=== PATIENT | male | born 1990 | race Caucasian/White ===

== ENCOUNTER 2021-03-07 12:27 | Inpatient (IN) | payer OTHER ==
[2021-03-07] MEDS ORDERED: ACETAMINOPHEN 325 MG TABLET (FP) PO PRN ×2 (12:57)
[2021-03-07] MEDS ORDERED: MAGNESIUM CITRATE 300 ML BOTTLE PO PRN (12:57)
[2021-03-07] MEDS ORDERED: IBUPROFEN 400 MG TABLET (FP) PO PRN (12:57)
[2021-03-07] MEDS ORDERED: ONDANSETRON *ODT* 4 MG TABLET SL PRN (12:57)
[2021-03-07] MEDS ORDERED: MAGNESIUM HYDROX 2400MG/30ML ORAL SUSPENSION 30 ML CUP PO PRN (12:57)
[2021-03-07] MEDS ORDERED: BISMUTH SUBSALICYLATE 262 MG/15 ML BTL PO PRN (12:57)
[2021-03-07] MEDS ORDERED: MENTHOL/PHENOL 1 EACH UD MM PRN (12:57)
[2021-03-07] MEDS ORDERED: diazePAM 5 MG TABLET ONE (13:45)
[2021-03-07] MEDS ORDERED: hydrOXYzine PAMOATE 25 MG CAPSULE (FP) PO ONE (13:45)
[2021-03-07] MEDS: hydrOXYzine PAMOATE 25 MG CAPSULE (FP) PO SCH ×3 (13:48→21:42)
[2021-03-07] MEDS: diazePAM 5 MG TABLET PO PRN (13:48)
[2021-03-07 14:01] VITALS: BMI 36.5
[2021-03-07 14:38] LABS: HEMATOCRIT 42.4 % (35.4-49); HEMOGLOBIN 14.9 GM/dL (11.7-16.9); MCH 33.2 pg (25.7-33.7); MCHC 35.1 g/dl (32.0-35.9); MEAN CELL VOLUME 94.4 fl (80-96); PLATELET COUNT 158 10^3/uL (134-434); RBC 4.49 M/mm3 (4.00-5.60); RDW 13.1 % (11.9-15.9); WHITE BLOOD COUNT 5.7 K/mm3 (4.0-10.0)
[2021-03-07 14:47] LABS: BLOOD UREA NITROGEN 9.4 mg/dL (7-18)
[2021-03-07 14:48] LABS: ALBUMIN 4.4 g/dl (3.4-5.0)
[2021-03-07 14:50] LABS: CREATININE 1.2 mg/dL (0.55-1.3)
[2021-03-07 14:52] LABS: BILIRUBIN,TOTAL 3.8 mg/dL (0.2-1); TOT PROT 8.9 g/dl (6.4-8.2)
[2021-03-07] MEDS: PRENATAL VITAMINS W/ FOLIC ACID TABLET (FP) PO SCH (15:01)
[2021-03-07] MEDS ORDERED: MINERAL OIL/PET HY-PHL TOPICAL OINTMENT 454 GM JAR TP PRN (16:33)
[2021-03-07] MEDS: diazePAM 5 MG TABLET PO SCH (18:01)
[2021-03-07] MEDS: MAG HYDROX/AL HYDROX/SIMETH 30 ML UNIT-DOSE CUP PO PRN (18:06)
[2021-03-07] MEDS: NICOTINE 10 MG CARTRIDGE (INHALER) IH PRN (19:59)
[2021-03-07] MEDS: THIAMINE HCL 100 MG TABLET (FP) PO SCH (21:42)
[2021-03-07] MEDS: MELATONIN 5 MG TABLETS PO SCH (21:42)
[2021-03-07] MEDS: OXYMETAZOLINE 0.05% NASAL SOLUTION 15 ML BOTTLE NS SCH (23:30)
[2021-03-08] MEDS: NICOTINE 10 MG CARTRIDGE (INHALER) IH PRN (00:01)
[2021-03-08] MEDS: diazePAM 5 MG TABLET PO SCH ×5 (00:16→22:25)
[2021-03-08] MEDS: METHOCARBAMOL 500 MG TABLET PO PRN ×2 (01:14→10:42)
[2021-03-08] MEDS: hydrOXYzine PAMOATE 25 MG CAPSULE (FP) PO SCH ×5 (05:49→22:25)
[2021-03-08] MEDS: diazePAM 5 MG TABLET PO PRN (07:43)
[2021-03-08] MEDS: PRENATAL VITAMINS W/ FOLIC ACID TABLET (FP) PO SCH (10:41)
[2021-03-08] MEDS: PANTOPRAZOLE 20 MG TABLET PO SCH (10:42)
[2021-03-08] MEDS: OXYMETAZOLINE 0.05% NASAL SOLUTION 15 ML BOTTLE NS SCH ×2 (10:43→22:26)
[2021-03-08] MEDS: NICOTINE 14 MG/24 HOURS TOPICAL PATCH TD SCH (10:43)
[2021-03-08] MEDS ORDERED: POTASSIUM CHLORIDE TABS 20 MEQ TABLET.ER (FP) PO ONE ×2 (13:03→18:00)
[2021-03-08] MEDS: amLODIPine BESYLATE 5 MG TABLET (FP) PO SCH (13:31)
[2021-03-08] MEDS ORDERED: cloNIDine HCL 0.1 MG TABLET PO ONE (17:27)
[2021-03-08] MEDS: THIAMINE HCL 100 MG TABLET (FP) PO SCH (22:25)
[2021-03-08] MEDS: MELATONIN 5 MG TABLETS PO SCH (22:26)
[2021-03-09] MEDS: diazePAM 5 MG TABLET PO SCH ×3 (05:41→22:23)
[2021-03-09] MEDS: hydrOXYzine PAMOATE 25 MG CAPSULE (FP) PO SCH ×5 (05:41→22:21)
[2021-03-09] MEDS: OXYMETAZOLINE 0.05% NASAL SOLUTION 15 ML BOTTLE NS SCH ×2 (10:29→22:23)
[2021-03-09] MEDS: amLODIPine BESYLATE 5 MG TABLET (FP) PO SCH (10:30)
[2021-03-09] MEDS: PANTOPRAZOLE 20 MG TABLET PO SCH (10:30)
[2021-03-09] MEDS: METHOCARBAMOL 500 MG TABLET PO PRN (10:30)
[2021-03-09] MEDS: PRENATAL VITAMINS W/ FOLIC ACID TABLET (FP) PO SCH (10:30)
[2021-03-09] MEDS: diazePAM 5 MG TABLET PO PRN ×2 (10:31→22:22)
[2021-03-09] MEDS: NICOTINE 14 MG/24 HOURS TOPICAL PATCH TD SCH (10:33)
[2021-03-09] MEDS ORDERED: amLODIPine BESYLATE 10 MG TABLET (FP) PO SCH (12:00)
[2021-03-09] MEDS ORDERED: POTASSIUM CHLORIDE ORAL LIQUID 20 MEQ/15 ML PO ONE ×2 (12:30→16:30)
[2021-03-09] MEDS: THIAMINE HCL 100 MG TABLET (FP) PO SCH (22:21)
[2021-03-09] MEDS: MELATONIN 5 MG TABLETS PO SCH (22:23)
[2021-03-10] MEDS: hydrOXYzine PAMOATE 25 MG CAPSULE (FP) PO SCH ×5 (05:38→22:20)
[2021-03-10] MEDS: diazePAM 5 MG TABLET PO SCH ×2 (05:38→17:44)
[2021-03-10] MEDS: PRENATAL VITAMINS W/ FOLIC ACID TABLET (FP) PO SCH (10:36)
[2021-03-10] MEDS: amLODIPine BESYLATE 10 MG TABLET (FP) PO SCH (10:37)
[2021-03-10] MEDS: PANTOPRAZOLE 20 MG TABLET PO SCH (10:37)
[2021-03-10] MEDS: diazePAM 5 MG TABLET PO PRN (10:38)
[2021-03-10] MEDS: OXYMETAZOLINE 0.05% NASAL SOLUTION 15 ML BOTTLE NS SCH ×2 (11:16→22:21)
[2021-03-10] MEDS: NICOTINE 14 MG/24 HOURS TOPICAL PATCH TD SCH (11:17)
[2021-03-10] MEDS: METOPROLOL TARTRATE 25 MG TABLET (FP) PO SCH ×2 (13:23→22:20)
[2021-03-10 13:40] LABS: CALCIUM 9.8 mg/dL (8.5-10.1)
[2021-03-10 13:41] LABS: BLOOD UREA NITROGEN 14.7 mg/dL (7-18)
[2021-03-10 13:44] LABS: CREATININE 1.3 mg/dL (0.55-1.3)
[2021-03-10 13:46] LABS: BILIRUBIN,TOTAL 5.2 mg/dL (0.2-1); TOT PROT 7.6 g/dl (6.4-8.2)
[2021-03-10 13:53] LABS: ALBUMIN 3.5 g/dl (3.4-5.0)
[2021-03-10] MEDS: MAG HYDROX/AL HYDROX/SIMETH 30 ML UNIT-DOSE CUP PO PRN (18:46)
[2021-03-10] MEDS: THIAMINE HCL 100 MG TABLET (FP) PO SCH (22:20)
[2021-03-10] MEDS: MELATONIN 5 MG TABLETS PO SCH (22:21)
[2021-03-11] MEDS: hydrOXYzine PAMOATE 25 MG CAPSULE (FP) PO SCH ×2 (05:25→09:02)
[2021-03-11] MEDS ORDERED: diazePAM 5 MG TABLET PO ONE (06:00)
[2021-03-11] MEDS: PANTOPRAZOLE 20 MG TABLET PO SCH (09:01)
[2021-03-11] MEDS: amLODIPine BESYLATE 10 MG TABLET (FP) PO SCH (09:01)
[2021-03-11] MEDS: METOPROLOL TARTRATE 25 MG TABLET (FP) PO SCH (09:02)
[2021-03-11] MEDS: NICOTINE 14 MG/24 HOURS TOPICAL PATCH TD SCH (09:02)
[2021-03-11] MEDS: PRENATAL VITAMINS W/ FOLIC ACID TABLET (FP) PO SCH (09:02)
[2021-03-11] MEDS: OXYMETAZOLINE 0.05% NASAL SOLUTION 15 ML BOTTLE NS SCH (09:03)
[2021-03-11 09:29] VITALS: BP 147/89; PULSE 103; TEMP 98
== END 2021-03-11 09:04 | disposition home or self-care (01) | DRG 897 ==
LOC: YASAS 12:27 → Y6N 13:49
PROVIDERS: ADMIT Allergy & Immunology; ATTEND Allergy & Immunology
PROC: HZ2ZZZZ Detoxification Services for Substance Abuse Treatment (ICD-10-PCS; principal; 2021-03-07)
DX: F10.230 Alcohol dependence with withdrawal, uncomplicated (principal); F14.10 Cocaine abuse, uncomplicated; F12.10 Cannabis abuse, uncomplicated; F17.210 Nicotine dependence, cigarettes, uncomplicated; F41.9 Anxiety disorder, unspecified; I10 Essential (primary) hypertension; K21.9 Gastro-esophageal reflux disease without esophagitis; R73.03 Prediabetes; E87.6 Hypokalemia; E80.6 Other disorders of bilirubin metabolism; K58.9 Irritable bowel syndrome, unspecified
CPT/HCPCS: 36415; 80053; 82962; 85027; 86780; 86803; 93005; 93010; C9803; J0735; U0003; U0005